=== PATIENT | female | born 1965 ===

== ENCOUNTER 2020-10-22 11:09 | Outpatient (CLI) | payer OTHER | END 2020-10-22 12:00 | disposition home or self-care (01) | LOC: RX STUDY 11:09 | DX: K44.9 Diaphragmatic hernia without obstruction or gangrene (principal); R13.12 Dysphagia, oropharyngeal phase ==

== ENCOUNTER 2022-04-21 08:15 | Inpatient (IN) | payer OTHER ==
[~2022-04-21] VITALS: Ht 160 cm; Wt 81.6 kg
== END 2022-04-25 11:25 | disposition home or self-care (01) | DRG 735 ==
LOC: O/R 04-23 07:05 → OB/GYN 04-23 07:05 → SURH 04-23 08:15 → OB/GYN 04-23 13:12 → SURH 04-23 15:30 → OB/GYN 04-25 11:25
PROVIDERS: ADMIT Obstetrics & Gynecology Gynecologic Oncology; ATTEND Obstetrics & Gynecology Gynecologic Oncology
PROC: 0UT90ZZ Resection of Uterus, Open Approach (ICD-10-PCS; 2022-04-23)
PROC: 0UT70ZZ Resection of Bilateral Fallopian Tubes, Open Approach (ICD-10-PCS; 2022-04-23)
PROC: 0UT20ZZ Resection of Bilateral Ovaries, Open Approach (ICD-10-PCS; 2022-04-23)
PROC: 0DTU0ZZ Resection of Omentum, Open Approach (ICD-10-PCS; 2022-04-23)
PROC: 07TC0ZZ Resection of Pelvis Lymphatic, Open Approach (ICD-10-PCS; principal; 2022-04-23 15:30)
DX: D25.1 Intramural leiomyoma of uterus (principal); D25.0 Submucous leiomyoma of uterus; D25.2 Subserosal leiomyoma of uterus; N72 Inflammatory disease of cervix uteri; N83.292 Other ovarian cyst, left side; N83.11 Corpus luteum cyst of right ovary; Z20.822 Contact with and (suspected) exposure to COVID-19

== ENCOUNTER 2022-04-21 14:08 | Outpatient (CLI) | payer OTHER | END 2022-04-21 14:15 | disposition home or self-care (01) | LOC: LAB 14:08 | PROVIDERS: ATTEND Obstetrics & Gynecology Gynecologic Oncology | DX: D68.9 Coagulation defect, unspecified (principal) ==